=== PATIENT | female | born 1945 | race Caucasian/White ===

== ENCOUNTER → 2018-03-30 | Outpatient (CLI) | payer MEDICARE, BC ==
[~2018-03-30] MED LIST: ALPH300C PO; ASCO100019 PO; ASPI-621 PO; ATOR20TA9 PO; CANA300T PO; CARV6.252 PO; CHOL200024 PO; CYCL1DRO EACHEYE; DOXA4TAB3 PO; ENAL20TA PO; LINA5TAB PO; POTA10TA31 PO; PREG75CA PO; TRAM50TA2 PO; VITAMIN B12 PO
[2018-03-30 13:32] LABS: ALANINE AMINOTRANSFERASE 44 U/L (12-78); ALBUMIN 3.9 g/dL (3.4-5.0); ANION GAP 8 mmol/L (5-15); CALCIUM 9.7 mg/dL (8.5-10.1); CHLORIDE 105 mmol/L (98-107); CREATININE 0.89 mg/dL (0.55-1.02)
[2018-03-30 13:35] LABS: ALKALINE PHOSPHATASE 88 U/L (45-117); BILIRUBIN,TOTAL 0.6 mg/dL (0.2-1.0); TOTAL PROTEIN 8.1 g/dL (6.4-8.2)
[2018-03-30 13:40] LABS: BASOPHILS # (AUTO) 0.04 x10^3/uL (0-0.1); BASOPHILS % (AUTO) 1 % (0-1); EOSINOPHILS # (AUTO) 0.25 x10^3/uL (0-0.4); EOSINOPHILS % (AUTO) 3 % (1-7); LYMPHOCYTES # (AUTO) 2.75 x10^3/uL (1-3.4); LYMPHOCYTES % (AUTO) 35 % (22-44); MD NO; MEAN CORPUSCULAR HEMOGLOBIN 33.9 pg (27.0-34.8); MEAN CORPUSCULAR HGB CONC 33.9 g/dL (32.4-35.8); MEAN PLATELET VOLUME 11.4 fL (7.4-10.4); MONOCYTES # (AUTO) 0.52 x10^3/uL (0.2-0.8); MONOCYTES % (AUTO) 7 % (2-9); NEUTROPHILS # (AUTO) 4.27 x10^3/uL (1.8-6.8); NEUTROPHILS % (AUTO) 55 % (42-75); PLATELET COUNT 134 x10^3/uL (130-400); RED BLOOD COUNT 5.26 x10^6/uL (3.82-5.3); RED CELL DISTRIBUTION WIDTH 12.5 % (9.6-15.2)
[2018-03-30 13:43] LABS: MICROSCOPIC NOT IND
[2018-03-30 13:45] LABS: INTERNATIONAL NORMALIZED RATIO 1.04 (0.93-1.1); PROTHROMBIN TIME 10.7 Seconds (9.6-11.5)
[2018-03-30 13:54] LABS: CULTURE INDICATED? NO
== END | disposition home or self-care (01) ==
LOC: STAR 12:20
PROVIDERS: ATTEND Neurological Surgery
DX: Z01.818 Encounter for other preprocedural examination (principal); M50.30 Other cervical disc degeneration, unspecified cervical region; M48.02 Spinal stenosis, cervical region
CPT/HCPCS: 36415; 71046; 80053; 81003; 85025; 85610; 85730; 93005

== ENCOUNTER 2018-04-08 11:09 | Inpatient (IN) | payer MEDICARE, BC ==
[~2018-04-08] VITALS: Ht 152.4 cm; Wt 80.8 kg
[~2018-04-08 11:09] MED LIST changes: +BACITRACIN 50,000 UNIT ONE; +BUPIVACAINE/PF-EPI 0.5% 1:200K ONE; +THROMBIN 5,000 UNIT VIAL TP ONE
[2018-04-08] MEDS ORDERED: LACTATED RINGERS 1,000 ML IV SCH (12:46)
[2018-04-08] MEDS ORDERED: LIDOCAINE-MPF 1%, 2ML INFIL ONE (13:00)
[2018-04-08] MEDS ORDERED: MIDAZOLAM 1 MG/ML, 2ML ONE (15:15)
[2018-04-08] MEDS ORDERED: FENTANYL PF 250 MCG/5ML ONE (15:15)
[2018-04-08] MEDS ORDERED: PROPOFOL 100 ML ONE (15:16)
[2018-04-08] MEDS ORDERED: ACETAMINOPHEN 500 MG TABLET PO ONE (16:00)
[2018-04-08] MEDS ORDERED: GABAPENTIN 300 MG CAPSULE PO ONE (16:00)
[2018-04-08] MEDS ORDERED: OxyconTIN ER 10 MG TAB.ER PO ONE (16:00)
[2018-04-08] MEDS ORDERED: FAMOTIDINE 20 MG TABLET PO ONE (16:00)
[2018-04-08] MEDS ORDERED: DEXAMETHASONE 4 MG/ML, 1ML ONE ×3 (16:12)
[2018-04-08] MEDS ORDERED: CEFAZOLIN 1,000 MG ONE ×2 (16:21)
[2018-04-08] MEDS ORDERED: PROMETHAZINE 12.5 MG SUPP PR PRN (17:00)
[2018-04-08] MEDS ORDERED: MEPERIDINE/PF 25MG/0.5ML IVPush PRN (17:00)
[2018-04-08] MEDS ORDERED: LABETALOL 5MG/ML, 20ML IV PRN ×2 (17:00→20:00)
[2018-04-08] MEDS ORDERED: OXYcodone 5 MG/5 ML ORAL.SOL UDC PO PRN (17:00)
[2018-04-08] MEDS ORDERED: DIAZEPAM 5 MG/ML, 2ML IVPush PRN (17:00)
[2018-04-08] MEDS ORDERED: FENTANYL PF 100 MCG/2ML IV PRN (17:00)
[2018-04-08] MEDS ORDERED: hydrALAzine 20 MG/ML, 1ML IV PRN (17:00)
[2018-04-08] MEDS ORDERED: ONDANSETRON 2MG/ML, 2ML IV PRN ×2 (17:00→20:00)
[2018-04-08] MEDS ORDERED: ONDANSETRON 2MG/ML, 2ML ONE (17:48)
[2018-04-08] MEDS ORDERED: SUCCINYLCHOLINE 20 MG/ML, 10ML ONE (17:49)
[2018-04-08] MEDS ORDERED: PROPOFOL 10 MG/ML, 20ML ONE (17:49)
[2018-04-08] MEDS ORDERED: ROCURONIUM 10MG/ML,5ML ONE (17:49)
[2018-04-08] MEDS ORDERED: HYDROmorphone 2 MG/ML, 1ML ONE (18:31)
[2018-04-08] MEDS: HYDROmorphone 2 MG/ML, 1ML IV PRN ×2 (18:36→18:42)
[2018-04-08] MEDS ORDERED: PHARMACY MAY ADJ FOR RENAL FX MC PRN (20:00)
[2018-04-08] MEDS ORDERED: CYCLOBENZAPRINE 10 MG TABLET PO PRN (20:00)
[2018-04-08] MEDS ORDERED: morphine SULFATE 10 MG/ML, 1ML IV PRN (20:00)
[2018-04-08] MEDS ORDERED: PROMETHAZINE 25 MG/ML, 1ML IM PRN (20:00)
[2018-04-08] MEDS ORDERED: DIPHENHYDRAMINE 50 MG CAPSULE PO PRN (20:00)
[2018-04-08] MEDS ORDERED: BISACODYL 10 MG SUPP PR PRN (20:00)
[2018-04-08] MEDS ORDERED: MAGNESIUM HYDROXIDE 8%, 30ML UDC PO PRN (20:00)
[2018-04-08] MEDS ORDERED: CEPHALEXIN 500 MG CAPSULE PO PRN (20:00)
[2018-04-08] MEDS ORDERED: DOXAZOSIN 2MG TABLET PO SCH (21:00)
[2018-04-08] MEDS ORDERED: INVOKANA 300 MG HOMEMEDPO SCH (21:00)
[2018-04-08] MEDS ORDERED: ENALAPRIL 20MG TABLET PO SCH (21:00)
[2018-04-08] MEDS ORDERED: ATORVASTATIN 20 MG TABLET PO SCH (21:00)
[2018-04-08] MEDS ORDERED: CANAGLIFLOZIN HOMEMEDPO SCH (21:00)
[2018-04-08] MEDS ORDERED: LINAGLIPTIN 5 MG TAB PO SCH (21:00)
[2018-04-08] MEDS ORDERED: ZOLPIDEM 5MG TABLET PO PRN (21:00)
[2018-04-08] MEDS: PREGABALIN 75 MG CAPSULE PO SCH (21:28)
[2018-04-08] MEDS: INSULIN REGULAR 100 UNITS/ML, 3ML VIAL SQ-INSULIN SCH (21:29)
[2018-04-08] MEDS: NS + 20MEQ KCL 1,000 ML IV SCH (21:30)
[2018-04-08] MEDS: [UNRECOGNIZED DRUG - OTHER] HOMEOPHTH SCH (21:40)
[2018-04-09 00:07] VITALS: BP 112/69
[2018-04-09] MEDS: OXYcodone/APAP 5/325MG TABLET PO PRN ×3 (00:34→10:27)
[2018-04-09] MEDS: CEFAZOLIN PMX 1GM/50ML 50 ML IVPB SCH ×2 (00:35→08:15)
[2018-04-09 04:10] VITALS: BP 123/70
[2018-04-09] MEDS: INSULIN REGULAR 100 UNITS/ML, 3ML VIAL SQ-INSULIN SCH ×2 (05:58→11:00)
[2018-04-09 06:00] VITALS: BP 118/58
[2018-04-09] MEDS ORDERED: CARVEDILOL 6.25 MG TABLET PO SCH (06:00)
[2018-04-09 07:28] VITALS: BP 125/81
[2018-04-09] MEDS ORDERED: OXYC-302 PO (08:50)
[2018-04-09] MEDS ORDERED: CYCL5TAB PO (08:51)
[2018-04-09] MEDS ORDERED: CEPH-368 PO (08:51)
[2018-04-09] MEDS ORDERED: SENNA/DOCUSATE TABLET PO SCH (09:00)
[2018-04-09] MEDS: NS + 20MEQ KCL 1,000 ML IV SCH (09:00)
[2018-04-09] MEDS: [UNRECOGNIZED DRUG - OTHER] HOMEOPHTH SCH (09:00)
[2018-04-09] MEDS: PREGABALIN 75 MG CAPSULE PO SCH (10:27)
[2018-04-09] MEDS ORDERED: CEPHALEXIN 250 MG CAPSULE ONE (10:28)
[2018-04-09] MEDS ORDERED: POTASSIUM CHLORIDE 10 MEQ TABLET.ER PO SCH (15:00)
== END 2018-04-09 11:51 | disposition home or self-care (01) | DRG 472 ==
LOC: ORIP 11:51 → 4NOR 19:39 → DCLOUNGE 04-09 11:26
PROVIDERS: ADMIT Neurological Surgery; ATTEND Neurological Surgery
PROC: 4A11X4G Monitoring of Peripheral Nervous Electrical Activity, Intraoperative, External Approach (ICD-10-PCS; 2018-04-08)
PROC: 0RG20A0 Fusion of 2 or more Cervical Vertebral Joints with Interbody Fusion Device, Anterior Approach, Anterior Column, Open Approach (ICD-10-PCS; principal; 2018-04-08 15:30)
DX: M48.02 Spinal stenosis, cervical region (principal); M50.021 Cervical disc disorder at C4-C5 level with myelopathy; M43.12 Spondylolisthesis, cervical region; M25.78 Osteophyte, vertebrae; Z88.6 Allergy status to analgesic agent; Z91.048 Other nonmedicinal substance allergy status
CPT/HCPCS: 72040; 82962; C1713; G0378; J0690; J1100; J1170; J2250; J2405; J2704; J3010; J3360; J3480; J0330

== ENCOUNTER → 2018-09-30 | Outpatient (CLI) | payer MEDICARE, BC ==
[~2018-09-30] MED LIST changes: +ASPI-496 PO; -ASPI-621 PO; +ASPI81TA45 PO; +ATOR20TA37 PO; -ATOR20TA9 PO; -BACITRACIN 50,000 UNIT ONE; -BUPIVACAINE/PF-EPI 0.5% 1:200K ONE; +CEPH-368 PO; +CYAN250013 PO; +CYCL5TAB PO; +OLOP2.5D6 EACHEYE; +OXYC-302 PO; -THROMBIN 5,000 UNIT VIAL TP ONE
[2018-09-30 12:26] LABS: BASOPHILS # (AUTO) 0.05 x10^3/uL (0-0.1); BASOPHILS % (AUTO) 1 % (0-1); EOSINOPHILS # (AUTO) 0.23 x10^3/uL (0-0.4); EOSINOPHILS % (AUTO) 3 % (1-7); LYMPHOCYTES # (AUTO) 2.48 x10^3/uL (1-3.4); LYMPHOCYTES % (AUTO) 35 % (22-44); MD NO; MEAN CORPUSCULAR HEMOGLOBIN 31.6 pg (27.0-34.8); MEAN CORPUSCULAR VOLUME 95.6 fL (80-100); MEAN PLATELET VOLUME 9.7 fL (7.4-10.4); MONOCYTES % (AUTO) 6 % (2-9); NEUTROPHILS # (AUTO) 3.99 x10^3/uL (1.8-6.8); NEUTROPHILS % (AUTO) 56 % (42-75); PLATELET COUNT 132 x10^3/uL (130-400); RED BLOOD COUNT 5.63 x10^6/uL (3.82-5.3); RED CELL DISTRIBUTION WIDTH 13.6 % (9.6-15.2)
[2018-09-30 12:37] LABS: PROTHROMBIN TIME 10.5 Seconds (9.6-11.5)
[2018-09-30 12:39] LABS: ALBUMIN 3.8 g/dL (3.4-5.0); ANION GAP 6 mmol/L (5-15); CHLORIDE 107 mmol/L (98-107)
[2018-09-30 12:44] LABS: MICROSCOPIC INDICATED
[2018-09-30 12:44] LABS: ALANINE AMINOTRANSFERASE 31 U/L (12-78); ALKALINE PHOSPHATASE 108 U/L (45-117); BILIRUBIN,TOTAL 0.5 mg/dL (0.2-1.0); CREATININE 0.81 mg/dL (0.55-1.02); TOTAL PROTEIN 7.8 g/dL (6.4-8.2)
[2018-09-30 12:56] LABS: CULTURE INDICATED? NO
== END | disposition home or self-care (01) ==
LOC: STAR 10:59
PROVIDERS: ATTEND Neurological Surgery
DX: Z01.818 Encounter for other preprocedural examination (principal); Z01.812 Encounter for preprocedural laboratory examination; Z01.811 Encounter for preprocedural respiratory examination; R79.1 Abnormal coagulation profile; M48.061 Spinal stenosis, lumbar region without neurogenic claudication
CPT/HCPCS: 36415; 71046; 80053; 81001; 85025; 85610; 85730; 93005

== ENCOUNTER 2018-10-08 05:34 | Inpatient (IN) | payer MEDICARE, BC ==
[~2018-10-08] VITALS: Ht 152.4 cm; Wt 75.3 kg
[2018-10-08 06:06] VITALS: BP 141/83
[2018-10-08] MEDS ORDERED: LACTATED RINGERS 1,000 ML IV SCH (06:10)
[2018-10-08] MEDS ORDERED: BUPIVACAINE/PF-EPI 0.5% 1:200K ONE (06:30)
[2018-10-08] MEDS ORDERED: BACITRACIN 50,000 UNIT ONE (06:31)
[2018-10-08] MEDS ORDERED: THROMBIN 5,000 UNIT VIAL TP ONE (06:31)
[2018-10-08] MEDS ORDERED: FENTANYL PF 250 MCG/5ML ONE ×2 (06:56→09:03)
[2018-10-08] MEDS ORDERED: LIDOCAINE 2%, 6 ML JEL.PF.APP MM ONE (06:58)
[2018-10-08] MEDS ORDERED: PROPOFOL 50 ML ONE ×3 (06:59→09:37)
[2018-10-08] MEDS ORDERED: OxyconTIN ER 10 MG TAB.ER PO ONE (07:00)
[2018-10-08] MEDS ORDERED: GABAPENTIN 300 MG CAPSULE PO ONE (07:00)
[2018-10-08] MEDS ORDERED: ACETAMINOPHEN 500 MG TABLET PO ONE (07:00)
[2018-10-08] MEDS ORDERED: DIAZEPAM 5 MG TABLET PO ONE (07:00)
[2018-10-08] MEDS ORDERED: ROCURONIUM 10 MG/ML,10ML ONE (07:12)
[2018-10-08] MEDS ORDERED: SUCCINYLCHOLINE 20 MG/ML, 10ML ONE (07:12)
[2018-10-08] MEDS ORDERED: LABETALOL 5 MG/ML SYRINGE ONE (07:12)
[2018-10-08] MEDS ORDERED: MIDAZOLAM 1 MG/ML, 2ML IV PRN (08:30)
[2018-10-08] MEDS ORDERED: FENTANYL PF 100 MCG/2ML IV PRN (08:30)
[2018-10-08] MEDS ORDERED: hydrALAzine 20 MG/ML, 1ML IV PRN (08:30)
[2018-10-08] MEDS ORDERED: ONDANSETRON 2MG/ML, 2ML IV PRN (08:30)
[2018-10-08] MEDS ORDERED: OXYcodone 5 MG/5 ML ORAL.SOL UDC PO PRN (08:30)
[2018-10-08] MEDS ORDERED: PROMETHAZINE 25 MG/ML, 1ML IV PRN (08:30)
[2018-10-08] MEDS ORDERED: METOPROLOL 1 MG/ML, 5ML IV PRN (08:30)
[2018-10-08] MEDS ORDERED: ALBUTEROL/IPRATROPIUM 2.5MG/0.5MG, 3 ML NPPB PRN (08:30)
[2018-10-08] MEDS ORDERED: MEPERIDINE/PF 25MG/0.5ML IVPush PRN (08:30)
[2018-10-08] MEDS ORDERED: DEXAMETHASONE 4 MG/ML, 1ML ONE (08:32)
[2018-10-08] MEDS ORDERED: ONDANSETRON 2MG/ML, 2ML ONE (08:32)
[2018-10-08] MEDS ORDERED: CEFAZOLIN 1,000 MG ONE (08:32)
[2018-10-08] MEDS ORDERED: PROPOFOL 10 MG/ML, 20ML ONE (08:32)
[2018-10-08] MEDS ORDERED: PHARMACY MAY ADJ FOR RENAL FX MC PRN (11:00)
[2018-10-08] MEDS ORDERED: PROMETHAZINE 25 MG/ML, 1ML IM PRN (11:00)
[2018-10-08] MEDS ORDERED: INSULIN REGULAR 100 UNITS/ML, 3ML VIAL SQ-INSULIN PRN (11:00)
[2018-10-08] MEDS ORDERED: ONDANSETRON 2MG/ML, 2ML IVPush PRN (11:00)
[2018-10-08] MEDS ORDERED: DIPHENHYDRAMINE 50 MG/ML, 1ML IVPush PRN (11:00)
[2018-10-08] MEDS ORDERED: OXYcodone 5 MG/5 ML ORAL.SOL UDC ONE (11:13)
[2018-10-08] MEDS ORDERED: HYDROmorphone 2 MG/ML, 1ML ONE (11:13)
[2018-10-08] MEDS: HYDROmorphone 2 MG/ML, 1ML IVPush PRN ×2 (11:20→11:30)
[2018-10-08] MEDS: CYANOCOBALAMIN 1,000 MCG TABLET PO SCH (11:30)
[2018-10-08 12:00] VITALS: BP 151/83
[2018-10-08] MEDS: OXYcodone/APAP 5/325MG TABLET PO PRN ×3 (14:32→22:43)
[2018-10-08] MEDS: NS + 20MEQ KCL 1,000 ML IV SCH (15:10)
[2018-10-08] MEDS: POTASSIUM CHLORIDE 10 MEQ TABLET.ER PO SCH (15:10)
[2018-10-08] MEDS: PREGABALIN 75 MG CAPSULE PO SCH ×2 (16:21→21:40)
[2018-10-08] MEDS: CEFAZOLIN PMX 1GM/50ML 50 ML IVPB SCH ×2 (16:22→23:54)
[2018-10-08] MEDS ORDERED: ENALAPRIL 10 MG TABLET ONE (21:29)
[2018-10-08] MEDS: ENALAPRIL 20MG TABLET PO SCH (21:38)
[2018-10-08] MEDS: CARVEDILOL 6.25 MG TABLET PO SCH (21:39)
[2018-10-08] MEDS: ATORVASTATIN 20 MG TABLET PO SCH (21:39)
[2018-10-08] MEDS: DOXAZOSIN 2MG TABLET PO SCH (21:39)
[2018-10-08] MEDS: CYCLOSPORINE 0.05% EACHEYE SCH (21:40)
[2018-10-08] MEDS: LINAGLIPTIN 5 MG TAB PO SCH (21:40)
[2018-10-08] MEDS: TEMPLATE NON-FORMULARY MED. (Canagliflozin (Invokana) 300 MG) PO SCH (21:40)
[2018-10-08] MEDS: SODIUM CHLORIDE FLUSH 10ML SYR IVF SCH (21:41)
[2018-10-08 21:50] VITALS: BP 131/77
[2018-10-09 00:43] VITALS: BP 95/78
[2018-10-09] MEDS: OXYcodone/APAP 5/325MG TABLET PO PRN ×6 (02:55→23:33)
[2018-10-09 04:18] VITALS: BP 101/54
[2018-10-09] MEDS: NS + 20MEQ KCL 1,000 ML IV SCH ×2 (07:08→11:01)
[2018-10-09] MEDS: CYCLOSPORINE 0.05% EACHEYE SCH ×2 (08:19→21:35)
[2018-10-09] MEDS: OLOPATADINE HCL 0.2% EACHEYE SCH (08:19)
[2018-10-09] MEDS: PREGABALIN 75 MG CAPSULE PO SCH ×3 (08:23→21:33)
[2018-10-09] MEDS: CARVEDILOL 6.25 MG TABLET PO SCH ×2 (08:23→21:34)
[2018-10-09] MEDS: SODIUM CHLORIDE FLUSH 10ML SYR IVF SCH ×2 (08:23→21:35)
[2018-10-09] MEDS: CHOLECALCIFEROL 1,000 UNIT TABLET PO SCH (08:23)
[2018-10-09 08:24] VITALS: BP 101/62
[2018-10-09] MEDS: CYANOCOBALAMIN 1,000 MCG TABLET PO SCH (10:57)
[2018-10-09 13:24] VITALS: BP 101/51
[2018-10-09] MEDS: POTASSIUM CHLORIDE 10 MEQ TABLET.ER PO SCH (15:13)
[2018-10-09 19:13] VITALS: BP 134/74
[2018-10-09] MEDS ORDERED: ENALAPRIL 10 MG TABLET ONE (21:21)
[2018-10-09] MEDS: ATORVASTATIN 20 MG TABLET PO SCH (21:33)
[2018-10-09] MEDS: LINAGLIPTIN 5 MG TAB PO SCH (21:34)
[2018-10-09] MEDS: METHOCARBAMOL 750 MG TABLET PO PRN (21:34)
[2018-10-09] MEDS: ENALAPRIL 20MG TABLET PO SCH (21:34)
[2018-10-09] MEDS: TEMPLATE NON-FORMULARY MED. (Canagliflozin (Invokana) 300 MG) PO SCH (21:35)
[2018-10-09] MEDS: DOXAZOSIN 2MG TABLET PO SCH (21:35)
[2018-10-09] MEDS: morphine SULFATE 10 MG/ML, 1ML IVPush PRN (21:43)
[2018-10-09] MEDS: SENNA/DOCUSATE TABLET PO PRN (23:33)
[2018-10-10] MEDS: NS + 20MEQ KCL 1,000 ML IV SCH ×2 (00:20→10:03)
[2018-10-10 03:35] VITALS: BP 89/59
[2018-10-10 07:51] VITALS: BP 95/61
[2018-10-10] MEDS: METHOCARBAMOL 750 MG TABLET PO PRN ×2 (07:54→16:00)
[2018-10-10] MEDS: OXYcodone/APAP 5/325MG TABLET PO PRN ×4 (07:55→23:47)
[2018-10-10] MEDS: PREGABALIN 75 MG CAPSULE PO SCH ×3 (07:55→19:47)
[2018-10-10] MEDS: CARVEDILOL 6.25 MG TABLET PO SCH ×2 (07:55→19:47)
[2018-10-10] MEDS: CYCLOSPORINE 0.05% EACHEYE SCH ×2 (07:57→19:59)
[2018-10-10] MEDS: CHOLECALCIFEROL 1,000 UNIT TABLET PO SCH (07:58)
[2018-10-10] MEDS: SODIUM CHLORIDE FLUSH 10ML SYR IVF SCH ×2 (07:58→21:00)
[2018-10-10] MEDS: OLOPATADINE HCL 0.2% EACHEYE SCH (09:55)
[2018-10-10 12:15] LABS: BASOPHILS # (AUTO) 0.03 x10^3/uL (0-0.1); BASOPHILS % (AUTO) 0 % (0-1); EOSINOPHILS # (AUTO) 0.02 x10^3/uL (0-0.4); EOSINOPHILS % (AUTO) 0 % (1-7); LYMPHOCYTES # (AUTO) 1.91 x10^3/uL (1-3.4); LYMPHOCYTES % (AUTO) 27 % (22-44); MD NO; MEAN CORPUSCULAR HEMOGLOBIN 32.7 pg (27.0-34.8); MEAN CORPUSCULAR HGB CONC 34.1 g/dL (32.4-35.8); MEAN PLATELET VOLUME 10.4 fL (7.4-10.4); MONOCYTES # (AUTO) 0.64 x10^3/uL (0.2-0.8); MONOCYTES % (AUTO) 9 % (2-9); NEUTROPHILS # (AUTO) 4.42 x10^3/uL (1.8-6.8); NEUTROPHILS % (AUTO) 63 % (42-75); PLATELET COUNT 100 x10^3/uL (130-400); RED BLOOD COUNT 3.67 x10^6/uL (3.82-5.3); RED CELL DISTRIBUTION WIDTH 13.6 % (9.6-15.2)
[2018-10-10] MEDS: CYANOCOBALAMIN 1,000 MCG TABLET PO SCH (12:16)
[2018-10-10 12:25] LABS: ANION GAP 9 mmol/L (5-15); CALCIUM 8.4 mg/dL (8.5-10.1); CHLORIDE 106 mmol/L (98-107)
[2018-10-10 13:33] VITALS: BP 112/72
[2018-10-10] MEDS: BISACODYL 10 MG SUPP PR PRN (16:00)
[2018-10-10] MEDS: POTASSIUM CHLORIDE 10 MEQ TABLET.ER PO SCH (16:00)
[2018-10-10 19:28] VITALS: BP 115/66
[2018-10-10] MEDS ORDERED: ENALAPRIL 10 MG TABLET ONE (19:30)
[2018-10-10] MEDS: ATORVASTATIN 20 MG TABLET PO SCH (19:46)
[2018-10-10] MEDS: ENALAPRIL 20MG TABLET PO SCH (19:47)
[2018-10-10] MEDS: TEMPLATE NON-FORMULARY MED. (Canagliflozin (Invokana) 300 MG) PO SCH (20:00)
[2018-10-10] MEDS: DOXAZOSIN 2MG TABLET PO SCH (20:00)
[2018-10-10] MEDS: LINAGLIPTIN 5 MG TAB PO SCH (20:00)
[2018-10-11] MEDS: NS + 20MEQ KCL 1,000 ML IV SCH ×2 (00:20→12:29)
[2018-10-11 01:57] VITALS: BP 101/53
[2018-10-11] MEDS ORDERED: THROMBIN 5,000 UNIT VIAL TP ONE (06:07)
[2018-10-11] MEDS ORDERED: BACITRACIN 50,000 UNIT ONE (06:07)
[2018-10-11] MEDS ORDERED: BUPIVACAINE/PF-EPI 0.5% 1:200K ONE (06:07)
[2018-10-11] MEDS: INSULIN REGULAR 100 UNITS/ML, 3ML VIAL SQ-INSULIN SCH ×4 (06:55→21:00)
[2018-10-11] MEDS ORDERED: PHENYLEPHRINE 10 MG/ML ONE (07:01)
[2018-10-11] MEDS ORDERED: MIDAZOLAM 1 MG/ML, 2ML ONE (07:01)
[2018-10-11] MEDS ORDERED: FENTANYL PF 250 MCG/5ML ONE (07:01)
[2018-10-11] MEDS ORDERED: LIDOCAINE 2%, 6 ML JEL.PF.APP MM ONE (07:02)
[2018-10-11] MEDS ORDERED: PROPOFOL 50 ML ONE ×2 (07:21→08:23)
[2018-10-11] MEDS ORDERED: BUPIVACAINE LIPOSOME/PF 10ML INFIL ONE (07:21)
[2018-10-11] MEDS ORDERED: METOPROLOL 1 MG/ML, 5ML IV PRN (08:00)
[2018-10-11] MEDS ORDERED: hydrALAzine 20 MG/ML, 1ML IV PRN (08:00)
[2018-10-11] MEDS ORDERED: MIDAZOLAM 1 MG/ML, 2ML IV PRN (08:00)
[2018-10-11] MEDS ORDERED: OXYcodone 5 MG/5 ML ORAL.SOL UDC PO PRN (08:00)
[2018-10-11] MEDS ORDERED: PROMETHAZINE 25 MG/ML, 1ML IV PRN (08:00)
[2018-10-11] MEDS ORDERED: MEPERIDINE/PF 25MG/0.5ML IVPush PRN (08:00)
[2018-10-11] MEDS ORDERED: ACETAMINOPHEN 325 MG TABLET PO PRN ×2 (08:00→11:30)
[2018-10-11] MEDS ORDERED: DIAZEPAM 5 MG/ML, 2ML IVPush PRN (08:00)
[2018-10-11] MEDS ORDERED: HYDROmorphone 2 MG/ML, 1ML IVPush PRN (08:00)
[2018-10-11] MEDS ORDERED: FENTANYL PF 100 MCG/2ML IV PRN (08:00)
[2018-10-11] MEDS ORDERED: ALBUTEROL/IPRATROPIUM 2.5MG/0.5MG, 3 ML NPPB PRN (08:00)
[2018-10-11] MEDS ORDERED: ONDANSETRON 2MG/ML, 2ML IV PRN (08:00)
[2018-10-11] MEDS ORDERED: FENTANYL PF 100 MCG/2ML ONE (08:07)
[2018-10-11] MEDS ORDERED: BUPIVACAINE 0.25% ONE (08:07)
[2018-10-11] MEDS ORDERED: DEXAMETHASONE 4 MG/ML, 1ML ONE (08:18)
[2018-10-11] MEDS ORDERED: PROPOFOL 10 MG/ML, 20ML ONE (08:18)
[2018-10-11] MEDS ORDERED: CEFAZOLIN 1,000 MG ONE (08:18)
[2018-10-11] MEDS ORDERED: ONDANSETRON 2MG/ML, 2ML ONE (08:18)
[2018-10-11 10:35] VITALS: BP 117/74
[2018-10-11] MEDS: CARVEDILOL 6.25 MG TABLET PO SCH ×2 (10:37→21:20)
[2018-10-11] MEDS: PREGABALIN 75 MG CAPSULE PO SCH ×3 (10:38→21:20)
[2018-10-11] MEDS: CYCLOSPORINE 0.05% EACHEYE SCH ×2 (10:38→21:21)
[2018-10-11] MEDS: CHOLECALCIFEROL 1,000 UNIT TABLET PO SCH (10:41)
[2018-10-11] MEDS: SODIUM CHLORIDE FLUSH 10ML SYR IVF SCH (10:41)
[2018-10-11] MEDS ORDERED: DIPHENHYDRAMINE 50 MG/ML, 1ML IVPush PRN (11:03)
[2018-10-11] MEDS: OLOPATADINE HCL 0.2% EACHEYE SCH (11:23)
[2018-10-11] MEDS ORDERED: ONDANSETRON 2MG/ML, 2ML IVPush PRN (11:30)
[2018-10-11] MEDS ORDERED: DIPHENHYDRAMINE 25 MG CAPSULE PO PRN (11:30)
[2018-10-11] MEDS ORDERED: HYDROcodone/APAP 5/325 TABLET PO PRN (11:30)
[2018-10-11] MEDS ORDERED: ACETAMINOPHEN 650 MG SUPP PR PRN (11:30)
[2018-10-11] MEDS: CYANOCOBALAMIN 1,000 MCG TABLET PO SCH (11:43)
[2018-10-11] MEDS ORDERED: KETOROLAC 30 MG/1 ML IV ONE (12:00)
[2018-10-11] MEDS: POTASSIUM CHLORIDE 10 MEQ TABLET.ER PO SCH (15:56)
[2018-10-11] MEDS: OXYcodone IR 5MG TABLET PO PRN ×2 (15:56→21:31)
[2018-10-11] MEDS: CEFAZOLIN PMX 1GM/50ML 50 ML IVPB SCH (15:57)
[2018-10-11 16:02] VITALS: BP 121/63
[2018-10-11] MEDS ORDERED: KETOROLAC 30 MG/1 ML IV PRN (18:00)
[2018-10-11 20:10] VITALS: BP 114/67
[2018-10-11] MEDS ORDERED: ENALAPRIL 10 MG TABLET ONE (21:13)
[2018-10-11] MEDS: ATORVASTATIN 20 MG TABLET PO SCH (21:20)
[2018-10-11] MEDS: METHOCARBAMOL 750 MG TABLET PO PRN (21:20)
[2018-10-11] MEDS: ENALAPRIL 20MG TABLET PO SCH (21:20)
[2018-10-11] MEDS: DOXAZOSIN 2MG TABLET PO SCH (21:21)
[2018-10-11] MEDS: LINAGLIPTIN 5 MG TAB PO SCH (21:21)
[2018-10-11] MEDS: TEMPLATE NON-FORMULARY MED. (Canagliflozin (Invokana) 300 MG) PO SCH (21:21)
[2018-10-11] MEDS: morphine SULFATE 10 MG/ML, 1ML IVPush PRN (23:06)
[2018-10-12] MEDS: CEFAZOLIN PMX 1GM/50ML 50 ML IVPB SCH (00:23)
[2018-10-12] MEDS: NS + 20MEQ KCL 1,000 ML IV SCH ×2 (00:50→14:10)
[2018-10-12] MEDS: OXYcodone IR 5MG TABLET PO PRN ×5 (01:42→20:34)
[2018-10-12] MEDS: morphine SULFATE 10 MG/ML, 1ML IVPush PRN (01:42)
[2018-10-12 03:04] VITALS: BP 117/70
[2018-10-12] MEDS: ENOXAPARIN 40 MG/0.4 ML SQ SCH (06:00)
[2018-10-12] MEDS: METHOCARBAMOL 750 MG TABLET PO PRN (06:04)
[2018-10-12 06:58] LABS: BASOPHILS # (AUTO) 0.01 x10^3/uL (0-0.1); BASOPHILS % (AUTO) 0 % (0-1); EOSINOPHILS % (AUTO) 0 % (1-7); LYMPHOCYTES % (AUTO) 18 % (22-44); MD NO; MEAN CORPUSCULAR HEMOGLOBIN 32.3 pg (27.0-34.8); MEAN CORPUSCULAR HGB CONC 33.6 g/dL (32.4-35.8); MEAN CORPUSCULAR VOLUME 96.1 fL (80-100); MEAN PLATELET VOLUME 9.9 fL (7.4-10.4); MONOCYTES # (AUTO) 0.56 x10^3/uL (0.2-0.8); MONOCYTES % (AUTO) 9 % (2-9); NEUTROPHILS # (AUTO) 4.75 x10^3/uL (1.8-6.8); NEUTROPHILS % (AUTO) 73 % (42-75); PLATELET COUNT 143 x10^3/uL (130-400); RED BLOOD COUNT 3.27 x10^6/uL (3.82-5.3)
[2018-10-12] MEDS: INSULIN REGULAR 100 UNITS/ML, 3ML VIAL SQ-INSULIN SCH ×4 (07:00→21:00)
[2018-10-12 07:08] LABS: ANION GAP 11 mmol/L (5-15); CALCIUM 8.4 mg/dL (8.5-10.1); CHLORIDE 108 mmol/L (98-107)
[2018-10-12 07:11] LABS: CREATININE 0.73 mg/dL (0.55-1.02)
[2018-10-12 08:00] VITALS: BP 117/72
[2018-10-12] MEDS: PREGABALIN 75 MG CAPSULE PO SCH ×3 (10:35→20:34)
[2018-10-12] MEDS: CHOLECALCIFEROL 1,000 UNIT TABLET PO SCH (10:35)
[2018-10-12 10:36] VITALS: BP 126/80
[2018-10-12] MEDS: OLOPATADINE HCL 0.2% EACHEYE SCH (10:36)
[2018-10-12] MEDS: NORTRIPTYLINE 10 MG CAPSULE PO SCH ×2 (10:36→20:34)
[2018-10-12] MEDS: CARVEDILOL 6.25 MG TABLET PO SCH ×2 (10:36→20:35)
[2018-10-12] MEDS: CYCLOSPORINE 0.05% EACHEYE SCH ×3 (10:36→20:33)
[2018-10-12] MEDS: CYANOCOBALAMIN 1,000 MCG TABLET PO SCH (10:51)
[2018-10-12 16:34] VITALS: BP 122/74
[2018-10-12] MEDS: POTASSIUM CHLORIDE 10 MEQ TABLET.ER PO SCH (16:39)
[2018-10-12 20:00] VITALS: BP 132/79
[2018-10-12] MEDS ORDERED: ENALAPRIL 10 MG TABLET ONE (20:24)
[2018-10-12] MEDS: TEMPLATE NON-FORMULARY MED. (Canagliflozin (Invokana) 300 MG) PO SCH (20:33)
[2018-10-12] MEDS: ATORVASTATIN 20 MG TABLET PO SCH (20:34)
[2018-10-12] MEDS: DOXAZOSIN 2MG TABLET PO SCH (20:35)
[2018-10-12] MEDS: LINAGLIPTIN 5 MG TAB PO SCH (20:35)
[2018-10-12] MEDS: ENALAPRIL 20MG TABLET PO SCH (20:35)
[2018-10-13] MEDS: SENNA/DOCUSATE TABLET PO PRN ×2 (00:23→14:46)
[2018-10-13] MEDS: OXYcodone IR 5MG TABLET PO PRN ×4 (00:23→14:55)
[2018-10-13] MEDS: METHOCARBAMOL 750 MG TABLET PO PRN ×3 (00:24→18:25)
[2018-10-13 02:00] VITALS: BP 107/70
[2018-10-13] MEDS: NS + 20MEQ KCL 1,000 ML IV SCH ×2 (03:30→15:55)
[2018-10-13] MEDS: ENOXAPARIN 40 MG/0.4 ML SQ SCH (06:00)
[2018-10-13 06:37] LABS: BASOPHILS # (AUTO) 0.01 x10^3/uL (0-0.1); BASOPHILS % (AUTO) 0 % (0-1); EOSINOPHILS # (AUTO) 0.07 x10^3/uL (0-0.4); EOSINOPHILS % (AUTO) 1 % (1-7); LYMPHOCYTES # (AUTO) 1.48 x10^3/uL (1-3.4); LYMPHOCYTES % (AUTO) 27 % (22-44); MD NO; MEAN CORPUSCULAR HEMOGLOBIN 32.2 pg (27.0-34.8); MEAN CORPUSCULAR HGB CONC 33.5 g/dL (32.4-35.8); MEAN PLATELET VOLUME 9.1 fL (7.4-10.4); MONOCYTES # (AUTO) 0.49 x10^3/uL (0.2-0.8); MONOCYTES % (AUTO) 9 % (2-9); NEUTROPHILS # (AUTO) 3.41 x10^3/uL (1.8-6.8); NEUTROPHILS % (AUTO) 62 % (42-75); PLATELET COUNT 153 x10^3/uL (130-400); RED BLOOD COUNT 3.37 x10^6/uL (3.82-5.3); RED CELL DISTRIBUTION WIDTH 14.4 % (9.6-15.2)
[2018-10-13 06:43] LABS: ANION GAP 10 mmol/L (5-15); CALCIUM 8.6 mg/dL (8.5-10.1); CHLORIDE 106 mmol/L (98-107); CREATININE 0.73 mg/dL (0.55-1.02)
[2018-10-13] MEDS: INSULIN REGULAR 100 UNITS/ML, 3ML VIAL SQ-INSULIN SCH ×3 (07:00→16:00)
[2018-10-13 08:36] VITALS: BP 122/76
[2018-10-13] MEDS: CARVEDILOL 6.25 MG TABLET PO SCH (08:37)
[2018-10-13] MEDS: NORTRIPTYLINE 10 MG CAPSULE PO SCH (08:37)
[2018-10-13] MEDS: PREGABALIN 75 MG CAPSULE PO SCH ×2 (08:37→16:12)
[2018-10-13] MEDS: CHOLECALCIFEROL 1,000 UNIT TABLET PO SCH (08:37)
[2018-10-13] MEDS: CYCLOSPORINE 0.05% EACHEYE SCH (08:38)
[2018-10-13] MEDS: OLOPATADINE HCL 0.2% EACHEYE SCH (08:38)
[2018-10-13] MEDS: CYANOCOBALAMIN 1,000 MCG TABLET PO SCH (11:30)
[2018-10-13 14:41] VITALS: BP 151/74
[2018-10-13] MEDS: BISACODYL 10 MG SUPP PR PRN (14:46)
[2018-10-13] MEDS: POTASSIUM CHLORIDE 10 MEQ TABLET.ER PO SCH (14:55)
[2018-10-13] MEDS ORDERED: NORT10CA PO (18:05)
[2018-10-13] MEDS ORDERED: DIPH25CA61 PO (18:06)
[2018-10-13] MEDS ORDERED: SENN-177 PO (18:09)
[2018-10-13] MEDS ORDERED: OXYC5TAB3 PO (18:10)
== END 2018-10-13 18:30 | DRG 454 ==
LOC: ORIP 05:34 → 4NOR 12:02
PROVIDERS: ADMIT Neurological Surgery; ATTEND Neurological Surgery
PROC: 4A11X4G Monitoring of Peripheral Nervous Electrical Activity, Intraoperative, External Approach (ICD-10-PCS; 2018-10-08)
PROC: 0ST20ZZ Resection of Lumbar Vertebral Disc, Open Approach (ICD-10-PCS; 2018-10-08)
PROC: 0SG10A0 Fusion of 2 or more Lumbar Vertebral Joints with Interbody Fusion Device, Anterior Approach, Anterior Column, Open Approach (ICD-10-PCS; principal; 2018-10-08 07:00)
PROC: 0SG1071 Fusion of 2 or more Lumbar Vertebral Joints with Autologous Tissue Substitute, Posterior Approach, Posterior Column, Open Approach (ICD-10-PCS; 2018-10-11)
PROC: 3E0R3BZ Introduction of Anesthetic Agent into Spinal Canal, Percutaneous Approach (ICD-10-PCS; 2018-10-11)
PROC: 00HU33Z Insertion of Infusion Device into Spinal Canal, Percutaneous Approach (ICD-10-PCS; 2018-10-11)
DX: M48.061 Spinal stenosis, lumbar region without neurogenic claudication (principal); M48.56XA Collapsed vertebra, not elsewhere classified, lumbar region, initial encounter for fracture; M51.06 Intervertebral disc disorders with myelopathy, lumbar region; M43.16 Spondylolisthesis, lumbar region; M41.86 Other forms of scoliosis, lumbar region; M51.16 Intervertebral disc disorders with radiculopathy, lumbar region; G62.9 Polyneuropathy, unspecified; M41.80 Other forms of scoliosis, site unspecified; I10 Essential (primary) hypertension; E78.5 Hyperlipidemia, unspecified; E66.9 Obesity, unspecified; G89.29 Other chronic pain; E11.9 Type 2 diabetes mellitus without complications; Z68.32 Body mass index [BMI] 32.0-32.9, adult; Z79.899 Other long term (current) drug therapy; Z88.8 Allergy status to other drugs, medicaments and biological substances; Z91.048 Other nonmedicinal substance allergy status
CPT/HCPCS: 36415; 72100; 72131; 80048; 82962; 85025; 86850; 86900; C1713; C1776; G0378; J0690; J1100; J1170; J1885; J2250; J2405; J2704; J3010; J3480; J3490; C1751; C1760; C1762; C1763; J0330; J2270; J2370; J7120